=== PATIENT | female | born 1970 | race African-American/Black ===

== ENCOUNTER 2025-03-27 14:54 | Emergency (ER) | payer BC, SELFPAY ==
--- OUTSIDE RECORDS SUMMARY | 2025-03-27 14:58 | XMS_ITS | Data Portability ---
Author Organization [facility] [email or web address], Main Office Address [address] [place] [address] Care Team Providers Care Exhibit Specialist Name Role Phone SERJIO HERRERA Primary Care Provider Assessment No assessment recorded. Plan of Treatment Reminders Order Date Submit Date Provider Last Modified By Organization Details Last Modified Time Details Appointments Sick/Acut e 2024 08:30A DANIEL Douglass Not available Not available Not available Procedure 15 2024 09:30A Ashley Corbett MD Not available Not available Not available Post-Op 15 2024 10:00A Ashley Corbett MD Not available Not available Not available Lab urinalysi s, dipstick 2023 024 [email or web address], [place], [address], 07/06/2024 10:55:39 urinalysi s, dipstick 2023 [address], [place], [address], 07/06/2024 10:42:34 culture, urine + sensitivi ty 2023 024 [email or web address] Not available 07/13/2024 08:34:59 RPR (rapid plasma reagin), serum 2023 024 [email or web address] Not available 07/13/2024 08:35:00 HIV (1+2) Ab screen, serum 2023 024 [email or web address] Not available 07/13/2024 08:35:00 CT + NG + TV, DNA, urine/swa b 2023 024 ANGELA Not available 07/09/2024 23:39:01 hepatitis panel (A+B+C), acute, serum 2023 024 [email or web address] Not available 07/13/2024 08:35:00 hepatitis C virus Ab, serum 2023 024 [email or web address] Not available 07/13/2024 08:35:00 hsv (1+2) igg Ab, serum 2023 024 [email or web address] Not available 07/13/2024 08:35:01 hsv (1+2) igg, serum 2023 024 [email or web address] Not available 07/13/2024 08:35:01 lipid panel, serum 2023 024 [email or web address] Not available 07/13/2024 08:34:59 CMP, serum or plasma 2023 024 [email or web address] Not available 07/13/2024 08:34:59 CK (creatine kinase), total, serum 2023 024 [email or web address] Not available 07/13/2024 08:35:00 CBC w/ auto diff 2023 024 [email or web address] Not available 07/13/2024 08:35:00 TSH, serum or plasma 2023 024 [email or web address] Not available 07/13/2024 08:35:00 HbA1c (hemoglob in A1c), blood 2023 024 [email or web address] Not available 07/13/2024 08:34:59 hemoglobi n A1C, fingersti ck 2022 023 ANGELA [facility] [address], [place], [address], 07/04/2023 12:06:55 Referral ENT surgery referral - Deviated septum to the right . Please eval and treat . Please call patient to schedule an appointme nt. Thank you . 2023 024 [email or web address] Brandin Corbett MD, [address], [place], [address], 08/06/2024 08:49:04 breast surgery referral - 53 y/o needs a breast reduction . chronic back pain , poor posture Please call patient to schedule an appointme nt. Thank you 2023 024 [email or web address] Susy Kuhn , [address], [address], 08/14/2024 16:18:00 Procedures None recorded. Surgeries septoplas ty (SURG) 2023 024 Not available 08/08/2024 09:30:21 submucous resection inferior turbinate (SURG) 2023 024 Not available 08/08/2024 09:30:21 Imaging None recorded. Medication Orders prednison e 20 mg tablet 2023 024 [email or web address] [facility] #[id number], [address], [place], [id number], 03/13/2025 09:35:17 diclofena c 3 % topical gel 2023 024 [id number], [address], [place], [id number], 09/14/2024 09:21:25 amoxicill in 500 mg capsule 2023 024 [email or web address] [facility] #[id number], [address], [place], [id number], 08/06/2024 09:21:26 tramadol 50 mg tablet 2023 [facility] #53665, [address], [place], [id number], 07/06/2024 10:07:43 fluconazo le 150 mg tablet 2023 [facility] #[id number], [place], [id number], 07/06/2024 10:07:41 Patient TargetsNo targets recorded. Patient Instructions Encounter Date Encounter Id Patient Instructions Last Modified By Organization Details Last Modified Time 09/14/2024 [id number] take zyrtec otc for now , if no better , call , we will consider an antibiotic then [email or web address] Not available 10/10/2024 14:14:37 03/13/2025 [id number] Discussed negative findings of a septal perforation. Patient wishes to continue to proceed for her upcoming scheduled septoplasty [email or web address] Not available 03/13/2025 10:44:29 Reason for Referral Breast Surgery Referral for Macromastia 53 y/o needs a breast reduction . chronic back pain , poor posture Please call patient to schedule an appointment. Thank you Referring Physician: [facility], Encounter Date: 07/06/2024 ENT Surgery Referral for Dev iated nasal septum Deviated septum to the right . Please eval and treat . Please call patient to schedule an appointment. Thank you . Referring Physician: Serjio Herrera [facility] Medicine, Encounter Date: 07/06/2024 Results Created Date Observation Date Name Description Value Unit Range Abnormal Flag Note LastModifiedBy Organization Detail LastModifiedTime 06/28/20 24 06/28/2024 COLOG UARD cologuard result Cancel led - Order d not applic able Not Available [facility] (Cologuard Orders Only) [address], [place], [address], 06/28/2024 12:12:17 06/29/20 23 06/29/2023 LIPID PANEL cholesterol 236 mg/dL 140-19 9 high NIH REBECCA NSUS RECOM MENDA TION FOR DAJA STERO L: ADULT CHILD LOW RISK: <200 <170 BORDE RLINE : <200- 239 ----- HIGH RISK: >240 >200 Not Available [facility] (Lab) [address] [place], [address], 06/29/2023 14:15:43 06/29/20 23 06/29/2023 LIPID PANEL triglyceride s 99 mg/dL 0-150 NIH REBECCA NSUS REPOR T RECOM MENDA TION FOR TRIGL YCERI SCARLET: ADULT CHILD LOW RISK: <150 ----- BODER LINE: 150-1 99 ----- HIGH RISK: >200 ----- Not Available [facility] (Lab) [address] [place], [address], 06/29/2023 14:15:43 06/29/20 23 06/29/2023 LIPID PANEL HDL cholesterol 44 mg/dL 40- Not Available [facility] (Lab) [address] [place], [address], 06/29/2023 14:15:43 06/29/20 23 06/29/2023 LIPID PANEL LDL cholesterol, calculated 172 mg/dL 0-130 high NIH REBECCA NSUS REPOR T RECOM MENDA TIONS FOR LDL: ADULT CHILD LOW RISK <130 <110 (OPTI MAL LDL) <100 ----- BORDE RLINE : 130-1 59 ----- HIGH RISK: >160 >130 A TRIGL YCERI DE RESUL T >400 INVAL IDATE S THE CALCU LATIO N FOR LDL FRACT IONAT ION - THE LDL RESUL T WILL NOT BE REPOR CARLOS. Not Available [facility] (Lab) [address] [place], [address], 06/29/2023 14:15:43 06/29/20 23 06/29/2023 COMPR EHENS BOBBY METAB OLIC PANEL sodium 141 mmol/ L 137-14 5 Not Available [facility] (Lab) [address] [place], [address], 06/29/2023 14:15:53 06/29/20 23 06/29/2023 COMPR EHENS BOBBY METAB OLIC PANEL potassium 4.7 mmol/ L 3.5-5. 1 Not Available [facility] (Lab) [address] [place], [address], 06/29/2023 14:15:53 06/29/20 23 06/29/2023 COMPR EHENS BOBBY METAB OLIC PANEL chloride 107 mmol/ L 98-107 Not Available [facility] (Lab) [address] [place], [address], 06/29/2023 14:15:53 06/29/20 23 06/29/2023 COMPR EHENS BOBBY METAB OLIC PANEL carbon dioxide 29 mmol/ L 22-30 Not Available [facility] (Lab) [address] [place], [address], 06/29/2023 14:15:53 06/29/20 23 06/29/2023 COMPR EHENS BOBBY METAB OLIC PANEL anion gap 9.7 mmol/ L 14-22 low Not Available [facility] (Lab) [address] [place], [address], 06/29/2023 14:15:53 06/29/20 23 06/29/2023 COMPR EHENS BOBBY METAB OLIC PANEL glucose 133 mg/dL 70-99 high Not Available [facility] (Lab) [address] [place], [address], 06/29/2023 14:15:53 06/29/20 23 06/29/2023 COMPR EHENS BOBBY METAB OLIC PANEL BUN 11 mg/dL 8-19 Not Available [facility] (Lab) [address] [place], [address], 06/29/2023 14:15:53 06/29/20 23 06/29/2023 COMPR EHENS BOBBY METAB OLIC PANEL creatinine 0.66 mg/dL 0.66-1 .25 Not Available [facility] (Lab) [address] [place], [address], 06/29/2023 14:15:53 06/29/2006/29/2023 COMPR EHENS BOBBY METAB OLIC PANEL GFR >60 Refer ence Range : Cody ge GFR Healt hy Adult : >60 mL/mi n/1.7 3 m2 Chron ic Kidne y Disea se: 15-60 mL/mi n/1.7 3 m2 Kidne y Failu re: <15/m L/min /1.73 m2 www.n iddk. nih.g ov The MDRD study equat ion has not been valid ated in child hung <18 years of age; pregn ant women ; the elder ly >85 years of age; or in some racia l or ethni c subgr oups, such as Hispa nics. Outsi de the valid ated venecia eters , estim ated GFR is less accur ate, requi ring clini lindsey judgm ent on a case- by-ca se basis . Clini lindsey inter preta tion for other races and ages must be made by the clini wicho. The MDRD study equat ion has not been valid ated for the evalu ation of serum creat inine relat ed to nutri ayaka l statu s or medic ation usage . For perso ns <18 years of age, a pedia tric GFR calcu lator is avail able on the [facility] websi te: https ://jamarcus carlin.juventino simpson/pr ofess ional s/kdo qi/gf r_cal culat or Not Available [facility] (Lab) [address] [place], [address], 06/29/2023 14:15:53 06/29/2006/29/2023 COMPR EHENS BOBBY METAB OLIC PANEL alkaline phosphatase 76 U/L 38-126 Not Available [facility] (Lab) [address] [place], [address], 06/29/2023 14:15:53 06/29/20 23 06/29/2023 COMPR EHENS BOBBY METAB OLIC PANEL alanine aminotransfe rase 18 U/L 0-35 Not Available [facility] (Lab) [address] [place], [address], 06/29/2023 14:15:53 06/29/20 23 06/29/2023 COMPR EHENS BOBBY METAB OLIC PANEL aspartate aminotransfe rase 21 U/L 15-37 Not Available [facility] (Lab) [address] [place], [address], 06/29/2023 14:15:53 06/29/20 23 06/29/2023 COMPR EHENS BOBBY METAB OLIC PANEL bilirubin, total 0.30 mg/dL 0.20-1 .30 Not Available [facility] (Lab) [address] [place], [address], 06/29/2023 14:15:53 06/29/20 23 06/29/2023 COMPR EHENS BOBBY METAB OLIC PANEL calcium 8.7 mg/dL 8.4-10 .2 Not Available [facility] (Lab) [address] [place], [address], 06/29/2023 14:15:53 06/29/20 23 06/29/2023 COMPR EHENS BOBBY METAB OLIC PANEL total protein 7.6 g/dL 6.3-8. 2 Not Available [facility] (Lab) [address] [place], [address], 06/29/2023 14:15:53 06/29/20 23 06/29/2023 COMPR EHENS BOBBY METAB OLIC PANEL albumin 4.0 g/dL 3.4-5. 0 Not Available [facility] (Lab) [address] [place], [address], 06/29/2023 14:15:53 06/29/20 23 06/29/2023 COMPR EHENS BOBBY METAB OLIC PANEL globulin 3.6 g/dL 2.6-4. 2 Not Available [facility] (Lab) [address] [place], [address], 06/29/2023 14:15:53 06/29/20 23 06/29/2023 COMPR EHENS BOBBY METAB OLIC PANEL A/G ratio 1.1 ratio 1.0-2. 0 Not Available [facility] (Lab) [address] [place], [address], 06/29/2023 14:15:53 07/04/2007/04/2023 hemog lobin A1C, finge rstic k HgbA1C 5.8% Not Available [address], [place], [address], 07/04/2023 11:19:39 07/06/20 24 07/06/2024 urina lysis , dipst ick Leukocytes (reference range: negative marlene/ l) Large Not Available [address], [place], [address], 07/06/2024 10:04:37 07/06/20 24 07/06/2024 urina lysis , dipst ick Nitrite (reference rage: negative mg/dl) negati ve Not Available [address], [place], [address], 07/06/2024 10:04:37 07/06/20 24 07/06/2024 urina lysis , dipst ick Urobilinogen (reference range: 0.2-1 mg/dl) 0.2 Not Available [address], [place], [address], 07/06/2024 10:04:37 07/06/20 24 07/06/2024 urina lysis , dipst ick Protein (reference range: negative mg/dl) Negati ve Not Available [address], [place], [address], 07/06/2024 10:04:37 07/06/20 24 07/06/2024 urina lysis , dipst ick pH (reference range: 5-7) 5.5 Not Available [address], [place], [address], 07/06/2024 10:04:37 07/06/20 24 07/06/2024 urina lysis , dipst ick Blood (reference range: negative Nino/ l) Small Not Available [address], [place], [address], 07/06/2024 10:04:37 07/06/20 24 07/06/2024 urina lysis , dipst ick Specific [place] (reference range: 1.005-1.030) 1.025 Not Available [address], [place], [address], 07/06/2024 10:04:37 07/06/20 24 07/06/2024 urina lysis , dipst ick Ketone (reference range: negative mg/dl) Negati ve Not Available [address], [place], [address], 07/06/2024 10:04:37 07/06/20 24 07/06/2024 urina lysis , dipst ick Bilirubin (reference range: negative mg/dl) Negati ve Not Available [address], [place], [address], 07/06/2024 10:04:37 07/06/20 24 07/06/2024 urina lysis , dipst ick Glucose (reference range: negative mg/dl) Negati ve Not Available [address], [place], [address], 07/06/2024 10:04:37 07/06/20 24 07/06/2024 urina lysis , dipst ick Appearance Clear Not Available [address], [place], [address], 07/06/2024 10:04:37 07/06/20 24 07/06/2024 urina lysis , dipst ick Color Yellow Not Available [address], [place], [address], 07/06/2024 10:04:37 07/06/20 24 07/06/2024 urina lysis , dipst ick Leukocytes (reference range: negative marlene/ l) Large Not Available [address], [place], [address], 07/06/2024 09:52:53 07/06/20 24 07/06/2024 urina lysis , dipst ick Nitrite (reference rage: negative mg/dl) negati ve Not Available [address], [place], [address], 07/06/2024 09:52:53 07/06/20 24 07/06/2024 urina lysis , dipst ick Urobilinogen (reference range: 0.2-1 mg/dl) 0.2 Not Available [address], [place], [address], 07/06/2024 09:52:53 07/06/20 24 07/06/2024 urina lysis , dipst ick Protein (reference range: negative mg/dl) Negati ve Not Available [address], [place], [address], 07/06/2024 09:52:53 07/06/20 24 07/06/2024 urina lysis , dipst ick pH (reference range: 5-7) 5.5 Not Available [address], [place], [address], 07/06/2024 09:52:53 07/06/20 24 07/06/2024 urina lysis , dipst ick Blood (reference range: negative Nino/ l) Small Not Available [address], [place], [address], 07/06/2024 09:52:53 07/06/20 24 07/06/2024 urina lysis , dipst ick Specific [place] (reference range: 1.005-1.030) 1.025 Not Available [address], [place], [address], 07/06/2024 09:52:53 07/06/20 24 07/06/2024 urina lysis , dipst ick Ketone (reference range: negative mg/dl) Negati ve Not Available [address], [place], [address], 07/06/2024 09:52:53 07/06/20 24 07/06/2024 urina lysis , dipst ick Bilirubin (reference range: negative mg/dl) Negati ve Not Available [address], [place], [address], 07/06/2024 09:52:53 07/06/20 24 07/06/2024 urina lysis , dipst ick Glucose (reference range: negative mg/dl) Negati ve Not Available [address], [place], [address], 07/06/2024 09:52:53 07/06/20 24 07/06/2024 urina lysis , dipst ick Appearance Clear Not Available [address], [place], [address], 07/06/2024 09:52:53 07/06/2007/06/2024 urina lysis , dipst ick Color Yellow Not Available [address], [place], [address], 07/06/2024 09:52:53 10/17/20 MAMMO , scree marge, digit al, bilat eral [facility] [address] [address] Patien t Name: FARHAD GUERRA [facility] ion #: [id number] Sex: F : 1969 3 Dictat ed By: Toña Lewis Attend ing Physic roel: ELKHAT IB, RUNDA Orderi ng Physic roel: ELKHAT IB, RUNDA Exam Date: Exam Name: MG DIGITA L KARMEN BILAT SCREEN Admitt ing Diagno sis(es ): CLINIC AL HISTOR Y: Screen ing COMPAR DEIRDRE STUDY: 021 TECHNI QUE: Using a full field digita l 2D mammog delfin unit CC, XCCL, and MLO views of both breast s are perfor med. FINDIN GS: BREAST COMPOS ITION: There are scatte red areas of fibrog landul ar densit y in the bilate ral breast s. No suspic ious masses , hilton ectura l distor tion, asymme tries or suspic ious calcif icatio ns in both breast s. IMPRES MARISSA: No eviden ce of malign gino. Recomm end annual mammog andrea. BIRADS : 2 - Benign Electr onical ly Signed by: Toña Lewis at 2022 10:31: 50 AM Page 1 [email or web address] [facility] (Imaging) [address] [place], [address], 10/18/2023 10:24:19 10/17/20 23 10/17/2023 MAMMO , scree marge, bilat eral No observ ation record ed. [email or web address] [facility] [address] [place], [address], 10/18/2023 10:24:20 06/01/20 24 06/01/2024 XR, knee No observ ation record ed. [email or web address] [facility] [address] [place], [address], 06/01/2024 08:35:54 Result Notes None recorded. 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 Not Available [facility] 3 08:31:31 Breast lump 84655377 Active Not Available [facility] 3 08:31:31 Chronic low back pain 779406221 Active 2022 Not Available [facility] 3 08:31:31 Menopausal flushing 347163523 Active 2022 Not Available [facility] 3 08:31:31 Essential hypertensi on 09013584 Active 2022 Not Available [facility] 3 08:31:31 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 2022 Not Available [facility] 3 08:31:31 Low back pain 993447603 Active 2022 Not Available [facility] 3 08:31:31 Pruritic rash 07439197 Active 2022 Not Available [facility] 3 08:31:31 Folliculit is 50079510 Active 2022 Not Available [facility] 3 08:31:31 Urticaria 968615761 Active 2022 Not Available [facility] 3 08:31:31 Acute sinusitis 92972682 Active 2022 Not Available [facility] 3 08:31:31 Spinal stenosis of lumbar region 68587576 Active 2022 Not Available [facility] 3 08:31:31 Hyperlipid emia 00384954 Active 2022 Not Available [facility] 3 08:31:31 Impaired fasting glycemia 411448450 Active 2022 Not Available [facility] 3 08:31:31 Vaginitis 47535859 Active 2022 Not Available [facility] 3 08:31:31 Dysuria 29535120 Active 2023 Anjali Chen RN [facility], [facility] 4 09:52:24 Macromasti a 185572831 Active 2023 DANIEL Garcia [address], [place], [address] , [facility] 4 09:59:01 Venereal disease screening Active 2023 DANIEL Garcia [address], [address], [place], [address] , [facility] 4 10:02:26 Deviated nasal septum 379589857 Active 2023 GENA Murrieta [address], [place], [address] , [facility] [employer] [facility] [employer] 5 10:43:45 Adult health examinatio n Active 2023 DANIEL Garcia [address], [facility] [address], [place], [address] , [facility] [employer] [facility] [employer] [facility] 4 16:52:51 Hypertroph y of nasal turbinates 56093738 Active 2023 Brandin Corbett MD [address], [facility] [address], [place], [address] , [employer] [facility] [email or web address] 4 15:04:07 Notes: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 Not Available [facility] 01/13/20 23 08:45:37 section completed Not Available [facility] 01/12/2023 08:45:37 Imaging Results Imaging Date Name Status LastModified by Organiz ation Details LastModified Time 10/17/2023 MAMMO, screening, digital, bilateral completed [address] (Imaging) [address] [place], [address], 10/18/2023 10:24:19 10/17/2023 MAMMO, screening, bilateral completed [facility] [address] [place], [address], 10/18/2023 10:24:20 06/01/2024 XR, knee completed [email or web address] [facility] [address] [place], [address], 06/01/2024 08:35:54 Procedure Notes None recorded. Medical Equipment None Reported. Allergies No known drug allergies Medications Name Sig Start Date Stop Date Status Note LastModified by Organization Details LastModified Time [facility] 2-pk kit covid-19 08/06 completed Not Available Not Available Not Available cyclobenzap rine 10 mg tablet TAKE 1 TABLET BY MOUTH EVERY 8 HOURS 03/31 completed Not Available Not Available Not Available amoxicillin 500 mg capsule TAKE 1 CAPSULE BY MOUTH EVERY 8 HOURS FOR 10 DAYS 08/06 completed Not Available Not Available Not Available hydrocodone 7.5 mg-ibuprofe n 200 mg tablet TAKE 1 TABLET BY MOUTH EVERY 8 HOURS NEEDED - DO NOT EXCEED 5 TABLETS PER DAY 01/12 completed Not Available Not Available Not Available albuterol sulfate 0.63 mg/3 mL solution for nebulizatio n Inhale by inhalatio n route. 2013 active Not Available Not Available Not Avai lable diclofenac 3 % topical gel APPLY TO LESION AREAS BY TOPICAL ROUTE 2 TIMES PER DAY 2023 active Not Available Not Available Not Avai lable prednisone 10 mg tablet TAKE 4 TABS DAILY X 3 DAYS,3 DAILY X 3 DAYS, 2 DAILY X 3 DAYS & 1 DAILY X 3 DAYS 09/06 completed Not Available Not Available Not Available doxycycline hyclate 100 mg capsule TAKE 1 CAPSULE BY MOUTH TWICE DAILY 03/31 completed Not Available Not Available Not Available nicotine 14 mg/24 hr daily transdermal patch active Not Available Not Available Not Available albuterol sulfate 2.5 mg/3 mL (0.083 %) solution for nebulizatio n USE 1 VIAL VIA NEBULIZER THREE TIMES DAILY 03/31 completed Not Available Not Available Not Available ammonium lactate 12 % lotion APPLY TO FEET TWICE A DAY NEEDED 05/29 completed Not Available Not Available Not Available atorvastati n 10 mg tablet Take 1 tablet every day by oral route. 07/06 completed Not Available Not Available Not Available lisinopril 20 mg-hydrochl orothiazide 12.5 mg tablet Take 1 tablet every day by oral route. 06/25 completed Not Available Not Available Not Available azithromyci n 250 mg tablet TAKE 2 TABLETS (500 MG) BY ORAL ROUTE ONCE DAILY FOR 1 DAY THEN 1 TABLET (250 MG) BY ORAL ROUTE ONCE DAILY FOR 4 DAYS 06/29 completed Not Available Not Available Not Available ibuprofen 800 mg tablet TAKE 1 TABLET BY MOUTH THREE TIMES DAILY WITH FOOD active Not Available Not Available No t Available fluconazole 150 mg tablet TAKE 1 TABLET BY MOUTH EVERY 72 HOURS active Not Available Not Available No t Available benzonatate 200 mg capsule Take 1 capsule 3 times a day by oral route. active Not Available Not Available No t Available acetaminoph en 120 mg-codeine 12 mg/5 mL oral solution TK 10 TO 15 ML PO Q 4 HOURS PRN FOR PAIN active Not Available Not Available No t Available valacyclovi r 1 gram tablet TAKE 2 TABLETS BY MOUTH EVERY 12 HOURS FOR 1 DAY 04/05 completed Not Available Not Available Not Available sumatriptan 100 mg tablet 04/26 completed Not Available Not Available Not Available Nystop 100,000 unit/gram topical powder APPLY TO THE AFFECTED AREA TWICE DAILY active Not Available Not Available No t Available Keflex 500 mg capsule Take 1 capsule every 6 hours by oral route as directed for 10 days. 11/02 completed Not Available Not Available Not Available phenazopyri dine 200 mg tablet active Not Available Not Available Not Available prednisone 20 mg tablet Take 2 tabs PO twice daily for 2 days; 1 tab PO twice daily for 5 days; 1/2 tab PO twice daily for 2 days; 1/2 tab PO once for 1 day. TAKE 2ND DOSE EVERYDAY AT NOON-10 DAY COURSE 03/13 complete [id number]|2025-03-27 14:58:00|2025-03-27 14:57:00|XMS_ITS|COLTON JACKSON|External Medical Summaries|[id number]|" Clinical Summary Created on: March 27, 2025 Marzena Guerra : 1970 Sex: Female Author Organization [facility] Address [address] [place] [id number] Care Team Providers Care Exhibit Specialist Name Role Phone Unavailable Primary Care Provider Unavailabl e Immunizations Immunization Administration Dates Next Due Covid-19 Vaccine, Vector-nr, Rs-ad26, Pf, 0.5 Ml ([employer]) 08/24/2021 Social History Tobacco Use Types Packs/Day Years Used Date Smoking Tobacco: Never Assessed Comments Unknown Sex and Gender Information Value Date Recorded Sex Assigned at Not on file Legal Sex Female 9:48 PM CDT Gender Identity Not on file Sexual Orientation Not on file Plan of Treatment Health Maintenance Due Date Last Done Comments Hepatitis C Virus (HCV) Screening 1970 TdaP Immunization 1970 Hepatitis B Immunization (1 of 3 - 19+ 3-dose series) 1988 Pap Smear 1990 Cervical Cancer Screening (CCS) 1999 HPV/Cotest 1999 Colonoscopy 2014 Colorectal Cancer Screening 2014 Cologuard 2019 Immunochemical Fecal Occult Blood 2019 Mammogram 2019 Pneumococcal Immunization (5 0+ years) (1 of 1 - PCV) 2019 Zoster Immunization (1 of 2) 2019 Influenza Immunization (#1) 2024 SARS-COV-2 Immunization (2 - 2023- season) 2024 08/24/2021 Respiratory Syncytial Virus (RSV) Immunization (Adult) (1 - 1-dose 75+ series) 2044 Meningococcal Immunization (ACWY) Aged Out No longer eligible based on patient's age to complete this topic Pneumococcal Immunization Combined Aged Out No longer eligible based on patient's age to complete this topic Rotavirus Immunization Aged Out No lo nger eligible based on patient's age to complete this topic "
--- OUTSIDE RECORDS SUMMARY | 2025-03-27 14:58 | XMS_ITS | Continuity of Care Document ---
Author Organization [facility] Address [address] [facility] [place] [address] Phone Care Team Providers Care Information Management Specialist Name Role Phone Roman Chapin MD Unavailable Unavailable Allergies, Adverse Reactions, Alerts Substance Reaction Status Criticality No Known Allergies Active No Inform ation Procedures Procedure Date PREV VISIT, NEW, AGE 40-64 Advance Directives Directive Yes / No Effective Date File Name No Information Encounters Encounter Description Practice Location Reason(s) For Visit Diagnoses Date Provider Providers Copied on Encounter [facility], [address] [place], [place], [id number], tel:[phone] [facility] No Information [address] Tavares Owens. [address] [facility] [place], [address] , [place]. tel:[phone] PREV VISIT, NEW, AGE 40-64 [facility], [address] [place], [place], [address], [place] tel:[phone] [facility] Physical (chief complaint) Dietary surveillance and counselingRoutine Medical ExamRoutine Medical Exam [address] Tavares Owens. [address] [place], [address] , [place]. tel:[phone] Family History Family Member Type Diagnosis Age At Onset Sister Problem (finding) hypothyroidism Mother Problem (finding) Hypertension Father Problem (finding) Diabetes mellitus Payers Payer name Insurance type Covered constitution party ID Authoriza tion(s) No Information Social History Type Description Quantity Date Captured Comments Sex Female Smoking Status No Information Chief Complaint And Reason For Visit No Information Plan Of Treatment Date Type Action Status Goal Tobacco cessation counseling completed Referral Ordered: MAMMOGRAM, SCREENING ordered History Of Present Illness Encounter Date Complaint History Of Prese nt Illness No Information Instructions Date Instruction Additional Infor dante Dietary counseling Related to Di etary surveillance counseling Decrease caloric intake Related to Dietary surveillance counseling Assessments Type Assessment Date No Information
[2025-03-27 15:03] VITALS: BP 166/91; PULSE 75; RESP 16; TEMP 36.7; O2SAT 98
--- NOTE | 2025-03-27 15:19 | ED_ITS ---
HPI - Recheck/Abnormal Lab/Rx General Chief Complaint: Recheck/Abnormal Lab/Rx Stated Complaint: htn Time Seen by Provider: 03/27/25 15:06 History of Present Illness HPI narrative: 54-year-old female with history of hypertension and hyperlipidemia presents to emergency department from urgent care for high blood pressure. Patient went to urgent care today for atraumatic left knee and ankle pain. She had x-rays performed which were unremarkable. She was found to be hypertensive at 1 80s/140s from the automatic blood pressure cuff. She then had her blood pressure manually checked in states was 160s over 100s. She was told by the provider she needed to come to the ER due to concerns for blood pressure. The patient does endorse a history of hypertension and states she stopped taking her losartan 5 years ago because she did not like taking medications. Unfortunately her PCP but she is establishing with a new PCP in 2 days. She denies chest pain, shortness of breath, vision changes, abdominal pain, oliguria, focal numbness or weakness. She has no complaints. Related Data Allergies Allergy/AdvReac Type Severity Reaction Status Date / Time No Known Allergies Allergy Mild Verified 03/27/25 14:55 Review of Systems Review of Systems: All systems reviewed & are unremarkable except as noted in HPI and below PMFSH Past Medical History Medical History Vaginal delivery x2 Incomplete defecation Pneumonia Migraines Hypertension High cholesterol Frequent headaches Microcalcification of left breast on mammogram Asthma Surgical History Surgical History History of elective History of x2 History of tonsillectomy (~12/2015) History of total abdominal hysterectomy (~2006) Family History Family History Mother Hypertension Father Hypertension Diabetes mellitus Grandparent Diabetes mellitus maternal grandmother Breast cancer maternal grandmother Exam Narrative: GENERAL: Well-appearing, well-nourished, and in no acute distress. HEAD: Normocephalic, atraumatic. EYES: EOMI. ENT: Nares clear, no rhinorrhea or epistaxis. Mucous membranes moist. NECK: Supple. CHEST: Clear to auscultation. No respiratory distress. HEART: Regular rate and rhythm. No murmur heard. Normal peripheral pulses. ABDOMEN: Soft, nontender, nondistended, normal active bowel sounds. EXTREMITIES: Normal range of motion. No edema. No significant tenderness to the left knee or left ankle. DP pulses 2+. Sensation intact. No overlying erythema or warmth, no edema. Full active and passive range of motion of left lower extremity without difficulty SKIN: Warm, dry, no rash. NEURO: No focal deficits. Alert and oriented x3 Course Vital Signs Vital signs: Vital Signs Temperature 98.0 F 03/27/25 15:03 Pulse Rate 75 03/27/25 15:03 Respiratory Rate 16 03/27/25 15:03 Blood Pressure 166/91 H 03/27/25 15:03 Pulse Oximetry 98 03/27/25 15:03 Oxygen Delivery Room Air 03/27/25 15:03 Temperature 98.0 F 03/27/25 15:03 Pulse Rate 75 03/27/25 15:03 Respiratory Rate 16 03/27/25 15:03 Blood Pressure 166/91 H 03/27/25 15:03 Pulse Oximetry 98 03/27/25 15:03 Oxygen Delivery Room Air 03/27/25 15:03 MDM - Recheck/Abnormal Lab/Rx MDM Narrative Medical decision making narrative: 54-year-old female with a history of hypertension presents to the emergency department via the advisement of urgent care for hypertension. Patient urgent care for atraumatic left knee and ankle pain, had x-rays performed which were generally unremarkable. Was found to be hypertensive and so was sent to the ED. upon arrival to the ED patient is hypertensive at 166/91, otherwise unremarkable. She is resting comfortably in exam bed, pleasant and conversational, laughing and telling jokes. She has no complaints denies any symptoms of hypertensive emergency including chest pain, shortness of breath abdominal pain, leg urea, vision changes, focal numbness or weakness, headache. She stopped taking her losartan about 5 years ago because she did not like taking medications. She is establishing with a new PCP in 2 days. I do not feel further workup or emergent drop in BP is indicated at this time as patient has no symptoms of hypertensive emergency and has likely been living at this level of hypertension for several years. Advised her to take daily blood pressure log and follow closely at her appointment in 2 days. Discussed strict ED return precautions. She is agreeable with the plan verbalized understanding. Discharged in stable condition. Discharge Plan Discharge Clinical Impression: Asymptomatic hypertension Patient Disposition: Home Condition: Stable Instructions: Antibiotic Form, Hypertension (ED) Additional Instructions: You were evaluated in the emergency department for high blood pressure. You are not having any symptoms of hypertensive emergency as discussed. Your exam is reassuring. Please keep a daily blood pressure log as discussed and follow-up closely with her primary care provider at her appointment on Tuesday. Return to the emergency department if you develop any chest pain, shortness of breath, vision changes, focal numbness or weakness, or other concerning symptoms. Patient Language: Lithuanian Prescriptions: No Action fluconazole [Diflucan] 150 mg tablet 150 mg PO DAILY Qty: 1 0RF Follow-up/Referrals: PHYSICIAN NOT ON STAFF,NONSTAFF [Primary Care Provider] -
--- OUTSIDE RECORDS SUMMARY | 2025-03-27 15:32 | XMS_ITS | Clinical Summary ---
Author Organization [facility] Address [address] [place] [address] Care Team Providers Care Reconsignment Clerk Name Role Phone Unavailable Primary Care Provider Unavailabl e Immunizations Immunization Administration Dates Next Due Covid-19 Vaccine, Vector-nr, Rs-ad26, Pf, 0.5 Ml ([employer]) 08/24/2021 Social History Tobacco Use Types Packs/Day [...]
--- OUTSIDE RECORDS SUMMARY | 2025-03-27 15:32 | XMS_ITS | Continuity of Care Document ---
Author Organization [facility] Address [address] [facility] [place] [address] [place] [address] Phone Care Team Providers Care In House Cra Name Role Phone Roman Chapin MD Unavailable Unavailable Allergies, Adverse Reactions, Alerts Substance Reaction Status Criticality No Known Allergies Active No Inform ation Procedures Procedure Date PREV VISIT, NEW, AGE 40-64 Advance Directives Directive Yes / No Effective Date File Name No Information Encounters Encounter Description Practice Location Reason(s) For Visit Diagnoses Date Provider Providers Copied on Encounter [facility], [address] [place], [place], [id number], tel:[phone] [facility] No Information [address] T[address] Ownes. [address] [facility] [place], [place], [address] , [place]. tel:[phone] PREV VISIT, NEW, AGE 40-64 [facility], [address] [place], [place], [id number], [place] tel:[phone] [facility] Physical (chief complaint) Dietary surveillance and counselingRoutine Medical ExamRoutine Medical Exam 3 Tavares Owens. [address] [place], [place], [address] , [place]. tel:[phone] Family History Family Member Type Diagnosis Age [...]
--- OUTSIDE RECORDS SUMMARY | 2025-03-27 15:32 | XMS_ITS | CONTINUITY OF CARE DOCUMENT ---
Author Name marina gray Address Unknown Organization [facility] Address [address] [address] [place] [address] Phone [phone] Care Team Providers Care Propeller Mechanic Name Role Phone Anselmo MUELLER, Atul Unavailable [phone] JAMES MUELLER, KARINA Unavailable [phone] INSURANCE PROVIDERS Payer name Policy type / Coverage type [place] red green party ID [employer] Medicaid [id number]
[2025-03-27 15:41] VITALS: BP 159/96; PULSE 71; RESP 18; O2SAT 96
== END 2025-03-27 15:43 | disposition home or self-care (01) ==
LOC: ANHED 15:30
PROVIDERS: Emergency Provider Physician Assistant
DX: I10 Essential (primary) hypertension (principal); E78.00 Pure hypercholesterolemia, unspecified; J45.909 Unspecified asthma, uncomplicated; Z87.01 Personal history of pneumonia (recurrent); Z90.710 Acquired absence of both cervix and uterus
CPT/HCPCS: 99281

== ENCOUNTER 2025-08-25 22:20 | Emergency (ER) | payer BC, SELFPAY ==
[2025-08-25 22:49] VITALS: BP 140/98; PULSE 78; RESP 18; TEMP 36.4; O2SAT 100
--- NOTE | 2025-08-26 00:09 | PC.NURSE ---
Patient and her SO come to desk and state we are leaving. Patient and her SO informed of risks of leaving before being seen by a provider and benefits of staying for evaluation. luca verbalized understanding and was wheeled out of the ED by her SO. Patient marked as left without being seen, triaged.
== END 2025-08-26 00:11 | disposition left against medical advice (07) ==
DX: S30.860A Insect bite (nonvenomous) of lower back and pelvis, initial encounter (principal)
CPT/HCPCS: 99199